=== PATIENT | female | born 1950 | race Caucasian/White ===

== ENCOUNTER 2017-04-28 16:47 | Inpatient (IN) | payer OTHER ==
[~2017-04-28] VITALS: Ht 160 cm; Wt 69.9 kg
[2017-04-28 17:21] VITALS: BP 143/93
--- NOTE | 2017-04-28 19:43 | NUR ---
LAB SENT . SWAB SENT TO LAB
--- NOTE | 2017-04-28 19:45 | NUR ---
Patient noted to have existing wounds upon arrival to ER. Photos taken of wound and placed in chart. Wound covered with dressing. Physician informed.
--- NOTE | 2017-04-28 20:00 | NUR ---
PATIENT PRESENTS TO ED WITH C/O OPEN WOUND ON RT LOWER LEG, RED/SWOLLEN WITH BLACKENED AND WHITISH AREAS. DIAMETER ABOUT THE SIZE OF A RAUL. PT DENIES N/V/D; AAOX4 WITH EVEN AND STEADY GAIT; LUNGS CLEAR BL; HR EVEN AND REGULAR; PT DENIES ANY FEVER, CP, SOB, OR COUGH AT THIS TIME; PATIENT STATES PAIN OF 9/10 AT THIS TIME; VSS; PATIENT POSITIONED FOR COMFORT; HOB ELEVATED; BEDRAILS UP X2; BED DOWN. ER MD MADE AWARE OF PT STATUS.
--- NOTE | 2017-04-28 20:21 | NUR ---
PT MOVED TO BED 7
--- NOTE | 2017-04-28 20:38 | NUR ---
Dr. Fatima evaluating patient at bedside.
--- NOTE | 2017-04-28 20:38 | NUR ---
Mack lopez in EDM - 04/28/17 at 2037 by LEON 1929- CALLED [facility] FOR [facility] ADMISSION. DR. JAKI MUÑOZ. 9- DR. JAKI BLOUNTW WITH DR. ARIAS
[2017-04-28] MEDS ORDERED: CLINDAMYCIN 900 MG in DEXTROSE 5% 100 ML IV ONE (20:45)
[2017-04-28] MEDS ORDERED: KETOROLAC 30 MG/ML VIAL IVP ONE (20:45)
[2017-04-28] MEDS ORDERED: CLINDAMYCIN 900 MG/6 ML VIAL IV ONE (21:04)
[2017-04-28] MEDS ORDERED: BACTROBAN 2%20 MG/GM TP (21:20)
[2017-04-28] MEDS ORDERED: KENALOG 0.1%15 GM TP (21:20)
[2017-04-28] MEDS ORDERED: KEFLEX250 MG PO (21:20)
--- NOTE | 2017-04-28 21:28 | NUR ---
Patient noted to have existing wounds upon arrival to ER. Photos taken of wound and placed in chart. Wound covered with dressing. Physician informed.
[2017-04-28 21:40] VITALS: BP 154/69
--- NOTE | 2017-04-28 21:40 | NUR ---
ADMITTED A PT FROM ER, TRANSPORTED VIA GURNEY ACCOMPANIED BY ER NURSE AND HER DAUGHTER. PT IS AAOX4, TELEMETRY STATUS, DENIES PAIN.ON ROOM AIR, HAS NO S/S OF RESPIRATORY DISTRESS/DISCOMFORT NOTED. SKIN CHECKING DONE, HAS OPEN WOUND TO HER RIGHT LOWER LEG, DRESSING WAS DONE, DRY AND INTACT, PICTURE WAS TAKEN IN ER. IV SITE IS PATENT AND INTACT, INFUSING WELL. MRSA SWABBING DONE. ROOM ORIENTATION WAS DONE, PLAN OF CARE DISCUSSED, VERBALIZED UNDERSTANDING. SAFETY MEASURES INITIATED, CALL LIGHT WITHIN REACH. WILL CONTINUE TO MONITOR.
--- NOTE | 2017-04-28 21:45 | NUR ---
Patient will be admitted to care of DR HADDAD. Admited to . Will go to room. Belongings list completed. Report to .
--- NOTE | 2017-04-28 21:52 | NUR ---
[facility] SENT WITH CHART TO ICU 6
[2017-04-28] MEDS ORDERED: NACL 0.9% 500 ML IV SCH (21:57)
[2017-04-28] MEDS ORDERED: ACETAMINOPHEN 325 MG TAB PO PRN (22:00)
[2017-04-28] MEDS ORDERED: DOCUSATE SODIUM 100 MG GELCAP PO PRN (22:00)
[2017-04-28] MEDS ORDERED: MUPIROCIN 2% OINT 22 GM TUBE TP PRN (22:05)
[2017-04-28] MEDS: NACL 0.9% 1,000 ML IV SCH (23:36)
[2017-04-28] MEDS: LEVOFLOXACIN 750 MG/D5W PREMIX 150 ML IV SCH (23:36)
--- NOTE | 2017-04-28 23:46 | NUR ---
PT REQUESTED A FOOD TO EAT, PROVIDED SANDWICH TO THE PT. ALL NEEDS ATTENDED.
--- NOTE | 2017-04-28 23:59 | NUR ---
PT COMPLAINED OF PAIN. V/S CHECKED AND STABLE. WILL ADMINISTER PAIN MED PER MD ORDERED.
[2017-04-29] VITALS: BP 133/85
[2017-04-29] MEDS: HYDROcodone/APAP 5/325 MG 1 TAB TAB PO PRN ×2 (00:02→11:12)
[2017-04-29] MEDS ORDERED: CLINDAMYCIN 600 MG/4 ML VIAL ONE ×2 (00:56→21:11)
--- NOTE | 2017-04-29 01:56 | NUR ---
EYES CLOSED, BREATHING EVEN AND UNLABORED. CALL LIGHT WITHIN REACH.
[2017-04-29 04:00] VITALS: BP 116/69
--- NOTE | 2017-04-29 04:00 | NUR ---
V/S CHECKED AND STABLE. HAS NO COMPLAIN OF PAIN. NO ACUTE DISTRESS NOTED, BREATHING EVEN AND UNLABORED. WILL CONTINUE TO MONITOR.-
[2017-04-29] MEDS: CLINDAMYCIN 600 MG in DEXTROSE 5% 50 ML IV SCH ×3 (04:45→21:21)
[2017-04-29] MEDS: NACL 0.9% 1,000 ML IV SCH ×4 (05:06→21:52)
--- NOTE | 2017-04-29 06:53 | NUR ---
PT AWAKE. DENIES PAIN. NO S/S OF RESPIRATORY DISTRESS/ DISCOMFORT NOTED.
--- NOTE | 2017-04-29 07:15 | NUR ---
RECEIVED PT ON FLOOR VIA [facility], PT IS A/OX4, ABLE TO AMBULATE FROM GURNEY TO BED, PT HAS IV ON THE RT AC, PATENT, INTACT, FLUSHING WELL, PT HAS A WOUND ON THE RT LOWER EXTREMITY, WRAPPED WITH DRESSING, DRY AND INTACT, NO S/S OF RESPIRATORY DISTRESS OR DISCOMFORT NOTED, DISCUSSED PLAN OF CARE WITH PT, PT VERBALIZED UNDERSTANDING, CALL LIGHT WITHIN REACH, WILL CONTINUE TO MONITOR.
--- NOTE | 2017-04-29 07:30 | NUR ---
TRANSFERRED PT TO 115. ENDORSED REPORT TO DAY SHIFT NURSE. PT IN STABLE CONDITION.
[2017-04-29 08:00] VITALS: BP 118/65
--- NOTE | 2017-04-29 09:02 | NUR ---
PATIENT HAS BEEN SCREENED AND CATEGORIZED HIGH NUTRITION RISK. PATIENT WILL BE SEEN WITHIN 1-2 DAYS OF ADMISSION. 04/29/17-04/30/[address]
[2017-04-29] MEDS: DOCUSATE SODIUM 100 MG GELCAP PO SCH ×2 (09:05→20:37)
--- NOTE | 2017-04-29 09:05 | NUR ---
DUE MEDICATIONS GIVEN, PT TOLERATED WELL, NO S/S OF RESPIRATORY DISTRESS OR DISCOMFORT NOTED, CALL LIGHT WITHIN REACH, WILL CONTINUE TO MONITOR.
[2017-04-29] MEDS: PANTOPRAZOLE 40 MG INJ VIAL IVP SCH (09:06)
--- NOTE | 2017-04-29 11:19 | NUR ---
PATIENT HAVING ECHO DONE AT BEDSIDE, PAIN MEDICATION GIVEN FOR PAIN IN THE RIGHT LEG, FAMILY IS AT BEDSIDE. Addendum: 04/29/17 at 1136 by Miley Carorll RN PT HAD ULTRASOUND OF HER [place] LOWER EXTREMITIES. ECHO WAS DONE PRIOR.
--- NOTE | 2017-04-29 13:00 | NUR ---
PT IS RESTING IN BED, DAUGHTERS ARE AT BEDSIDE, CALL LIGHT WITHIN REACH.
--- NOTE | 2017-04-29 14:24 | NUR ---
04/29/17 RD INITIAL ASSESSMENT COMPLETED PLEASE REFER TO NUTRITION ASSESSMENT UNDER CARE ACTIVITY FOR ESTIMATED NUTRITIONAL NEEDS. 1. CONTINUE REGULAR DIET 2. ADD VITAMIN C SUPPLEMENT 1X/DAILY 3. RD TO FOLLOW-UP 2-3 DAYS; HIGH RISK TJ AYALA RD
--- NOTE | 2017-04-29 14:40 | NUR ---
PT IS RESTING IN BED, WATCHING TV, DAUGHTERS ARE AT BEDSIDE.
[2017-04-29 16:00] VITALS: BP 120/73
--- NOTE | 2017-04-29 16:35 | NUR ---
PT IS RESTING IN BED, NO S/S OF RESPIRATORY DISTRESS OR DISCOMFORT NOTED, FAMILY IS AT BEDSIDE, CALL LIGHT WITHIN REACH.
--- NOTE | 2017-04-29 17:09 | NUR ---
I LET DR. LORENZO KNOW THE PATIENT WAS REQUESTING SOMETHING TO HELP HER SLEEP AT NIGHT, DR. LORENZO SAID HE WOULD GO AHEAD AND PUT IN AN ORDER FOR REBEKAIEN AND WOULD BE IN SHORTLY TO SPEAK TO THE PATIENT.
[2017-04-29] MEDS ORDERED: KETOROLAC 30 MG/ML VIAL IM SCH (18:00)
[2017-04-29] MEDS: CALCIUM CARB/VIT-D 500 MG/200 IU 1 TAB PO SCH (18:30)
--- NOTE | 2017-04-29 19:02 | NUR ---
I LET THE PATIENT SHE HAD A PAIN MEDICATION ORDERED AND IT WOULD BE IN THE MUSCLE, PT REFUSED. WILL CHECK IF DOCTOR VALENTÍN CAN ORDER MEDICATION THROUGH IV.
--- NOTE | 2017-04-29 19:33 | NUR ---
ENDORSED PT TO JANNET BLOOM. FOR CONTINUITY OF CARE, PT STABLE AT THIS TIME, I LET WOLF KNOW IF HE COULD HAVE THE DOCTOR CHANGE THE ORDER FOR TORADOL TO BE THROUGH IVP ROUTE INSTEAD.
--- NOTE | 2017-04-29 19:34 | NUR ---
RECEIVED REPORT FROM AM NURSE. PT RESTING IN BED. AOX4, ABLE TO VERBALIZE NEEDS. PT DENIES CHEST PAIN, SOB, OR S/S OF ACUTE DISTRESS. PT C/O PAIN. SEE PAIN ASSESSMENT. WILL MEDICATE ORDERED. RIGHT LEG ULCER NOTED, DRESSSING CLEAN DRY AND INTACT. DISCUSSED AND REVIEWED PLAN OF CARE WITH PT. PT VERBALIZES UNDERSTANDING. IV ACCESS ASYMPTOMATIC, PATENT AND INTACT. IVF INFUSING WELL. SAFETY MEASURES ENSURED. CALL LIGHT WITHIN REACH. WILL CONTINUE TO MONITOR.
[2017-04-29] MEDS: ZOLPIDEM 5 MG TAB PO SCH (20:37)
[2017-04-29] MEDS: MORPHINE SULFATE 4 MG/ML SYR IVP PRN (20:38)
--- NOTE | 2017-04-29 20:55 | NUR ---
PT C/O 08/02 PAIN. SEE PAIN ASSESSMENT. MORPHINE DRAWN UP TO SYRINGE, BUT PT REFUSED AT BEDSIDE AND REQUESTED NORCO INSTEAD. MORPHINE WASTED AT THE [facility] WITH 2 RN VERIFICATION. ADMINISTERED MEDICATIONS WITH EDUCATION. PT VERBALIZES UNDERSTANDING AND TOLERATED MEDS WELL.
[2017-04-29] MEDS: HYDROcodone/APAP 7.5/325 MG 1 TAB PO PRN (21:20)
[2017-04-29] MEDS: LEVOFLOXACIN 750 MG/D5W PREMIX 150 ML IV SCH (22:04)
--- NOTE | 2017-04-29 23:00 | NUR ---
PT REFUSED SCHEDULE TORADOL IM. DR LIYA MUÑOZ MD MADE AWARE OF PT'S REFUSAL OF TORADOL IM, SUGGESTED TORADOL IV. ORDERS PENDING, WILL CARRY OUT.
[2017-04-30] VITALS: BP 134/71
--- NOTE | 2017-04-30 | NUR ---
PT SLEEPING. CONDITION STABLE. ALL NEEDS MET. SAFETY MEASURES ENSURED. CALL LIGHT WITHIN REACH. WILL CONTINUE TO MONITOR.
--- NOTE | 2017-04-30 04:00 | NUR ---
PT SLEEPING. IVF INFUSING WELL. CONDITION STABLE. ALL NEEDS MET. SAFETY MEASURES ENSURED. CALL LIGHT WITHIN REACH. WILL CONTINUE TO MONITOR.
[2017-04-30] MEDS ORDERED: CLINDAMYCIN 600 MG/4 ML VIAL ONE (05:00)
[2017-04-30] MEDS: KETOROLAC 30 MG/ML VIAL IM/IVP SCH ×3 (05:11→17:14)
[2017-04-30] MEDS: CLINDAMYCIN 600 MG in DEXTROSE 5% 50 ML IV SCH ×3 (05:11→20:53)
--- NOTE | 2017-04-30 07:22 | NUR ---
CONDITION STABLE. ENDORSED PLAN OF CARE TO AM NURSE.
--- NOTE | 2017-04-30 07:23 | NUR ---
PT AWAKE AND ALERT, NO SIGNS OF ACUTE DISTRESS. BREATHING EVEN AND UNLABORED BILATERALLY. SKIN INTACT WITH ULCER ON ANTERIOR RIGHT LOWER EXTREMITY AND RLE CELLULITIS. C/O PAIN IN RLE 01/30 HOWEVER DOES NOT WANT ANY PAIN MEDICATION AT THIS TIME. CONTINENT TO BOWEL AND BLADDER. IV PATENT AND INFUSING WITH NO REDNESS AROUND INSERTION SITE. PT AMBULATORY WITH BRP, BED IN LOW POSITION WITH BILATERAL HALF SIDE RAILS UP, CALL LIGHT WITHIN REACH. RE-ORIENTED PATIENT TO UNIT AND HOSPITAL.
[2017-04-30 08:00] VITALS: BP 122/63
[2017-04-30] MEDS: DOCUSATE SODIUM 100 MG GELCAP PO SCH ×2 (09:00→09:36)
--- NOTE | 2017-04-30 09:00 | NUR ---
PT HAD TWO DIFFERENT ORDERS FOR COLACE TO BE ADMINISTERED AT 0900, PER DR NELSON, ONLY GIVE ONE DOSE, NOTED, WILL CARRY OUT.
[2017-04-30] MEDS: LACTOBACILLUS RHAMNOSUS GG 1 EACH CAP PO SCH (09:36)
[2017-04-30] MEDS: PANTOPRAZOLE 40 MG INJ VIAL IVP SCH (09:36)
[2017-04-30] MEDS: CALCIUM CARB/VIT-D 500 MG/200 IU 1 TAB PO SCH (09:38)
[2017-04-30] MEDS: NACL 0.9% 1,000 ML IV SCH ×2 (10:01→20:57)
[2017-04-30] MEDS ORDERED: LORazepam 2 MG/ML VIAL IVP PRN (10:45)
--- NOTE | 2017-04-30 10:45 | NUR ---
PER DR NELSON, PATIENT IS FEELING ANXIOUS, GIVE ATIVAN ORDERED PRN, NOTED, WILL CARRY OUT.
--- NOTE | 2017-04-30 11:46 | NUR ---
CM NOTE FAXED INITIAL REVIEW TO [facility] [phone] PH [phone] CM [facility] EXT [phone] AND TO [facility] [phone] PH [phone] [facility] EXT [phone]
--- NOTE | 2017-04-30 12:45 | NUR ---
PATIENT C/O NAUSEA. WILL MEDICATE WITH PRN ZOFRAN.
[2017-04-30] MEDS: ONDANSETRON 4 MG/2 ML VIAL IVP PRN ×2 (12:57→21:55)
--- NOTE | 2017-04-30 15:10 | NUR ---
PER DR NELSON, APPLY BACTROBAN ON ULCER AND COVER WITH COMPOSITE DRESSING TODAY. AFTER DEBRIDEMENT APPLY LUKE, NOTED, WILL CARRY OUT.
[2017-04-30 16:00] VITALS: BP 143/78
[2017-04-30] MEDS ORDERED: LIDOCAINE 1% 500 MG/50 ML VIAL INJ SCH (16:00)
--- NOTE | 2017-04-30 16:17 | NUR ---
RECEIVED NEW ORDERS FROM DR KENNY, NOTED, WILL CARRY OUT.
[2017-04-30] MEDS ORDERED: MAGNESIUM OXIDE 400 MG TAB PO SCH (16:46)
[2017-04-30] MEDS: HYDROcodone/APAP 7.5/325 MG 1 TAB PO PRN (17:14)
[2017-04-30] MEDS ORDERED: MORPHINE SULFATE 2 MG/ML SYR IVP PRN (18:20)
[2017-04-30] MEDS: MORPHINE SULFATE 4 MG/ML SYR IVP PRN (18:28)
--- NOTE | 2017-04-30 18:30 | NUR ---
PER DR KENNY, AFTER DEBRIDEMENT LEAVE UNIBOOT ON FOR 7 DAYS, HOWEVER IF DISCHARGED BEFORE 7 DAYS, CUT UNI BOOT OFF AT DISCHARGE COVER ULCER WITH GAUZE AND WRAP WITH MIGUEL WRAP. DR KENNY DOES NOT WANT PATIENT GOING HOME WEARING UNI BOOT. WILL RELAY TO WORD PROCESSING MACHINE OPERATOR NURSE AT REPORT.
--- NOTE | 2017-04-30 19:31 | NUR ---
PT AWAKE AND ALERT, NO SIGNS OF ACUTE DISTRESS. BED IN LOW POSITION WITH BILATERAL HALF SIDE RAILS UP, CALL LIGHT WITHIN REACH. ENDORSED TO RETAIL AND PROMOTIONS COORDINATOR NURSE FOR CONTINUITY OF CARE.
--- NOTE | 2017-04-30 19:31 | NUR ---
RECEIVED REPORT FROM LEROY POWER AT BEDSIDE. PT IS ALERT AWAKE ORIENTED X4. INITIAL ASSESSMENT DONE. NO S/S OF RESPIRATORY DISTRESS OR SOB NOTED. NO C/O PAIN OR ANY DISCOMFORT AT THIS TIME. PLAN OF CARE REVIEWED TO PT AND FAMILY AT BEDSIDE AND VERBALIZED UNDERSTANDING. CALL LIGHT WITHIN REACH. WILL CONTINUE TO MONITOR.
[2017-04-30] MEDS: ZOLPIDEM 5 MG TAB PO SCH (20:54)
[2017-04-30] MEDS: MUPIROCIN 2% OINT 22 GM TUBE TP SCH (20:55)
[2017-04-30] MEDS: LEVOFLOXACIN 750 MG/D5W PREMIX 150 ML IV SCH (21:30)
--- NOTE | 2017-04-30 23:56 | NUR ---
CALLED L&D AND SPOKE TO TIFFANY AND NOTIFIED THAT THERE'S AN ORDER TO CHECK PATIENT'S FATAL HEART TONE TWICE A DAY AND VERBALIZED UNDERSTANDING. WILL CONTINUE TO MONITOR. Addendum: 04/30/17 at 2359 by Darryn Montiel RN WRONG PATIENT
[2017-05-01] VITALS: BP 135/67
--- NOTE | 2017-05-01 00:30 | NUR ---
PT IS SLEEPING RIGHT NOW BUT EASILY AROUSABLE. NO S/S OF ANY DISCOMFORT AT THIS TIME. ALL NEEDS ARE ATTENDED. CALL LIGHT WITHIN REACH. WILL CONTINUE TO MONITOR.
[2017-05-01] MEDS: CLINDAMYCIN 600 MG in DEXTROSE 5% 50 ML IV SCH ×2 (04:14→13:00)
--- NOTE | 2017-05-01 05:15 | NUR ---
AM CARE RENDERED. BED LINEN CHANGED. INSTRUCTED PT TO REPOSITION. KEPT CLEAN AND DRY. CALL LIGHT WITHIN REACH. WILL CONTINUE TO MONITOR.
[2017-05-01] MEDS: KETOROLAC 30 MG/ML VIAL IM/IVP SCH ×3 (05:58→14:01)
--- NOTE | 2017-05-01 07:25 | NUR ---
RECEIVED PT REPORT AT BEDSIDE. PT IS AAOX4 AND DENIES PAIN. PT SHOWS NO S/S OF DISTRESS ON ROOM AIR. NOTED IV ON THE R AC WITH IVF RUNNING. NOTED DRESSING ON THE R LEG CLEAN DRY AND INTACT. PT BED IS LOWERED WITH CALL LIGHT WITHIN REACH.
--- NOTE | 2017-05-01 07:30 | NUR ---
PT HAS NO S/S OF ANY DISCOMFORT. PLAN OF CARE ENDORSED TO ANTONIO POWER AT BEDSIDE FOR CONTINUITY OF CARE.
[2017-05-01 08:00] VITALS: BP 129/73
[2017-05-01] MEDS: MUPIROCIN 2% OINT 22 GM TUBE TP SCH (08:00)
--- NOTE | 2017-05-01 08:06 | NUR ---
SUGAR FROM [facility] CALLED AND STATED SHE WILL HAVE DR. HENRIQUEZ SEE PT TODAY.
[2017-05-01] MEDS: NACL 0.9% 1,000 ML IV SCH (09:10)
--- NOTE | 2017-05-01 10:00 | NUR ---
ADMINISTERED SCHEDULED MEDICATIONS. PT TOLERATED WELL. PT SATED SHE WAS NAUSEAS AND WOULD LIKE NAUSEA MEDICATION. WILL ADMINISTER.
[2017-05-01] MEDS: CALCIUM CARB/VIT-D 500 MG/200 IU 1 TAB PO SCH (10:08)
[2017-05-01] MEDS: PANTOPRAZOLE 40 MG INJ VIAL IVP SCH (10:08)
[2017-05-01] MEDS: DOCUSATE SODIUM 100 MG GELCAP PO SCH (10:08)
[2017-05-01] MEDS: LACTOBACILLUS RHAMNOSUS GG 1 EACH CAP PO SCH (10:08)
[2017-05-01] MEDS: ONDANSETRON 4 MG/2 ML VIAL IVP PRN (10:26)
--- NOTE | 2017-05-01 10:30 | NUR ---
ADMINISTERED NAUSEA MEDICATION. PT IS SITTING COMFORTABLY IN BED AND SHOWS NO S/S OF DISTRESS ON ROOM AIR.
[2017-05-01] MEDS ORDERED: toradol PO (11:54)
[2017-05-01] MEDS ORDERED: COLACE100 MG PO (11:54)
--- NOTE | 2017-05-01 12:04 | NUR ---
CM NOTE FAXED CONCURRENT REVIEW AND ORDER FOR HOME HEALTH FOR WOUND CARE TO [facility] [phone] PH [phone] [facility] EXT [phone] AND TO [facility] [phone] PH [phone] [facility]ANEY EXT [phone]
--- NOTE | 2017-05-01 12:06 | NUR ---
PAGED DR TOURE REGARDING PT DRESSING TX CHANGES. WILL AWAIT FOR CALL BACK.
--- NOTE | 2017-05-01 12:30 | NUR ---
PT FAMILY MEMBER AT BEDSIDE. PT IS COMFORTABLY IN BED AND SHOWS NO S/S OF DISTRESS.
--- NOTE | 2017-05-01 13:00 | NUR ---
RECEIVED CALLBACK FROM DR TOURE
--- NOTE | 2017-05-01 13:15 | NUR ---
PERFORMED DRESSING CHANGE ORDERED. PLEASE SEE WOUND ASSESSMENT.
--- NOTE | 2017-05-01 13:30 | NUR ---
PT TOLERATED DRESSING CHANGE WELL
--- NOTE | 2017-05-01 13:40 | NUR ---
DISCONTINUED IV WITH CANNULA INTACT.
--- NOTE | 2017-05-01 14:00 | NUR ---
MD ORDERS FOR DISCHARGED WERE NOT COMPLETE. DR LORENZO AWARE. WILL AWAIT FOR ORDERS.
[2017-05-01] MEDS ORDERED: CALCIUM/VITAMIN1 TA3 PO (14:07)
[2017-05-01] MEDS ORDERED: KETOROLAC PO (14:07)
[2017-05-01] MEDS ORDERED: COLACE100 M1 PO (14:07)
[2017-05-01] MEDS ORDERED: LORAZEPAM0.5 M1 PO (14:10)
[2017-05-01] MEDS ORDERED: CULTURELLE10 Billion PO (14:10)
--- NOTE | 2017-05-01 14:23 | NUR ---
Social Service Note: I faxed inquiry to [facility] , fax (contracted with [employer]). Per Marycruz from [facility], she can accept patient, however, they need a hard copy of authorization from [employer] for home health services to be fax to them, I provided her with [employer] from [employer] contact information ext [phone], machine adjuster leader case trim Nidia galdamez
--- NOTE | 2017-05-01 15:22 | NUR ---
Social Service Note: I called and spoke with [employer] from [place] contact information ext [phone], I explained to her [facility] , fax (contracted with [facility]) can accept patient, however, they need a hard copy of authorization from [place] for home health services to be fax to them. I provided Blossom with [facility]'s fax number and phone number. Per Blossom, she will fax authorization to [facility] today, she stated patient's discharge will not be delayed by [facility]. Per Marycruz from [facility] they will send a nurse to patient's home on Thursday05/03/17, Bartender Nidia made aware.
[2017-05-01 16:00] VITALS: BP 113/64
--- NOTE | 2017-05-01 16:00 | NUR ---
PT AWARE OF DISCHARGE ORDERS THAT NEED TO BE COMPLETED. PT IS COOPERATIVE AND UNDERSTANDING. PT HAS FAMILY AT BEDSIDE. PT IS DRESSED AND IN BED WATCHING TV COMFORTABLY. PT SHOWS NO S/S OF DISTRESS ON ROOM AIR.
[2017-05-01] MEDS ORDERED: LEVAQUIN750 MG PO (16:14)
--- NOTE | 2017-05-01 17:52 | NUR ---
PT HAS BEEN DISCHARGED. ALL DISCHARGED INSTRUCTIONS AND PAPERWORK SIGNED. ALL QUESTIONS ANSWERED. PT AND FAMILY MEMBER VERBALIZED UNDERSTANDING. ALL BELONGINGS IN PT POSSESSION. WRISTBANDS REMOVED. PT WAS WHEELED OFF UNIT ON A WHEELCHAIR. PT IN STABLE CONDITION.
--- NOTE | 2017-05-01 20:03 | NUR ---
SPOKE WITH PT'S DAUGHTER DHIRAJ OVER THE PHONE AND CLARIFIED IF THE CONTROLLED MEDS (ATIVAN AND KETOROLAC) WERE TRANSMITTED SUCCESSFULLY TO THEIR PREFERRED PHARMACY. DHIRAJ STATED SHE ALREADY HAVE ALL THE HOME MEDS AND SHE DOES NOT NEED THE WRITTEN PRESCRIPTIONS.
== END 2017-05-01 17:52 | disposition home health service (06) | DRG 264 ==
LOC: MED 16:47 → MIC 21:28 → MTU 04-29 07:10
PROVIDERS: ADMIT Family Medicine; ATTEND Family Medicine
PROC: 0JBN0ZZ Excision of Right Lower Leg Subcutaneous Tissue and Fascia, Open Approach (ICD-10-PCS; principal; 2017-04-30)
DX: I83.218 Varicose veins of right lower extremity with both ulcer of other part of lower extremity and inflammation (principal); N17.0 Acute kidney failure with tubular necrosis; M86.8X6 Other osteomyelitis, lower leg; L03.115 Cellulitis of right lower limb; L97.819 Non-pressure chronic ulcer of other part of right lower leg with unspecified severity; I10 Essential (primary) hypertension; E83.42 Hypomagnesemia; F43.22 Adjustment disorder with anxiety; Z53.29 Procedure and treatment not carried out because of patient's decision for other reasons; I87.8 Other specified disorders of veins; Z79.899 Other long term (current) drug therapy; F41.9 Anxiety disorder, unspecified